=== PATIENT | female | born 1970 | race Caucasian/White ===

== ENCOUNTER → 2025-07-02 09:38 | Outpatient (BNVA) | payer MEDICAID, SELFPAY | PROVIDERS: PCP Nurse Practitioner Family; Visit Provider Nurse Practitioner Family | DX: E03.9 Hypothyroidism, unspecified (principal); E55.9 Vitamin D deficiency, unspecified; Z89.612 Acquired absence of left leg above knee | CPT/HCPCS: 80053; 82652; 84443; 85025 ==